=== PATIENT | female | born 1990 | race African-American/Black ===

== ENCOUNTER 2021-11-05 12:32 | Emergency (ER) | payer OTHER, SELFPAY ==
[2021-11-05 13:25] LABS: Bilirubin Neg (Negative); Blood, Urine 10 (Negative); Clarity Clear (Clear); Glucose, Urine (Dipstick) Normal (Negative); Ketone, Urine 5 mg/dL (Negative); Leukocyte 500 (Negative); Nitrite Negative (Negative); Protein, Urine (Dipstick) 30 mg/dl (Neg-Trace); Specific Gravity, Urine 1.015 (1.002-1.036)
[2021-11-05 13:27] LABS: Pregnancy Test - Urine (BHCG) Negative (Negative); Pregu Control Background? CLEAR/WHITE (CLR/WHITE); Pregu Control Bar Appear? YES (CONTROL BAR); Specific Gravity 1.015 (1.002-1.036)
[2021-11-05 13:35] LABS: Bacteria/HPF 2+ HPF (None Seen); Mucous/LPF 1+ LPF (<2+); RBC/HPF 0-3 HPF (0-3); Squamous Epithelial 0-3 HPF (0-3)
[2021-11-06 17:11] LABS: Chlam.trachomatis by PCR,Urine DETECTED (NotDetected)
== END 2021-11-05 14:38 | disposition home or self-care (01) ==
LOC: CSHERS 12:32
DX: N89.8 Other specified noninflammatory disorders of vagina (principal)
CPT/HCPCS: 81003; 81015; 81025; 87086; 87491; 87591; 99283

== ENCOUNTER 2021-12-27 13:27 | Emergency (ER) | payer OTHER ==
[2021-12-27 14:52] LABS: Pregnancy Test - Urine (BHCG) Negative (Negative); Pregu Control Background? CLEAR/WHITE (CLR/WHITE); Pregu Control Bar Appear? YES (CONTROL BAR); Specific Gravity 1.015 (1.002-1.036)
== END 2021-12-27 15:24 | disposition home or self-care (01) ==
LOC: CSHERS 13:27
DX: N94.6 Dysmenorrhea, unspecified (principal)
CPT/HCPCS: 81025; 99284